=== PATIENT | male | born 1965 | race African-American/Black ===

== ENCOUNTER 2017-09-08 13:09 | Emergency (ER) | payer OTHER ==
[~2017-09-08] VITALS: Ht 175.3 cm; Wt 117.9 kg
[2017-09-08] MEDS ORDERED: ASPIR 8181 MG ORAL (13:17)
[2017-09-08] MEDS ORDERED: LOSARTAN POTASS25 MG ORAL (13:17)
[2017-09-08] MEDS ORDERED: HYDROcodone/Acetamin 10/325 tab ORAL ONE (13:45)
--- NOTE | 2017-09-08 14:03 | Emergency Room Report ---
History of Present Illness General Chief Complaint: Skin Rash/Abscess Source: Patient (Sheila Dean) Present Illness HPI 52-year-old male presents to the emergency department complaining of erythema, swelling, tenderness that is 8 out of 10 in severity to the right occipital area 2 days. Patient states his symptoms have been progressive. Patient reports he thought he had a pimple which she attempted to dress himself however he was unsuccessful and he notes that the area of swelling has gotten bigger. Patient reports difficulty sleeping on that side at night. Patient states he is up-to-date with tetanus vaccinations he denies IV or IM drug use. Denies DM or immune compromise, reports only HTN. He denies neck pain or stiffness. He reports onset after shaving his head, states he re-uses razors. He denies fevers or chills. Denies CP, Palpitations, LOC, AMS, dizziness, Changes in Vision, Sensation, paresthesias, or a sudden severe headache. (Sheila Dean) Allergies: Coded Allergies: No Known Allergies (Unverified , 09/08/17) Patient History Past Medical History: see triage record Past Surgical History: none Pertinent Family History: none Immunizations: UTD Reviewed Nursing Documentation: PMH: Agreed; PSxH: Agreed (Sheila Dean) Nursing Documentation-PMH Hx Cardiac Problems: Yes Hx Diabetes: Yes (Sheila Dean) Review of Systems All Other Systems: negative except mentioned in HPI (Sheila Dean) Physical Exam Vital Signs Date Time Temp Pulse Resp B/P (MAP) Pulse Ox O2 Delivery O2 Flow Rate FiO2 09/08/17 13:17 98.4 103 18 160/92 94 Room Air 98.4 Sp02 EP Interpretation: reviewed, normal General Appearance: no apparent distress, alert, GCS 15, non-toxic Head: normocephalic, other - swelling, erythema and tenderness with induration in a circular shape 2cm in diameter with some fluctuance palpable. On the right occipetal area. Eyes: right eye PERRL; bilateral eye normal inspection ENT: hearing grossly normal, normal voice Neck: full range of motion Respiratory: chest non-tender, lungs clear, normal breath sounds, speaking full sentences Cardiovascular #1: regular rate, rhythm Musculoskeletal: back normal, gait/station normal, normal range of motion, non- tender Neurologic: alert, oriented x3, responsive, motor strength/tone normal, sensory intact, speech normal, grossly normal Psychiatric: judgement/insight normal Skin: normal color, no rash, warm/dry, well hydrated Lymphatic: no adenopathy (Sheila Dean) Procedures Incision and Drainage Incision and Drainage : Consent: Verbal Site: right occipital area Blade Size: 11 I & D Procedure: betadine prep Wound Location: head - right occipital area Wound's Depth, Shape: superficial Wound Length (cm): 1 Wound Explored: contaminated - purulent discharge is expressed. Anesthesia: 1% Lidocaine Volume Anesthetic (ccs): 1 Splint Applied?: No Sling Applied?: No Patient Tolerated: Well Complications: None (Sheila Dean) Medical Decision Making PA Attestation Dr. Ch is my supervising Physician whom patient management has been discussed with. (Sheila Dean) Diagnostic Impression: Primary Impression: Abscess ER Course 52-year-old male presents to the emergency department complaining of erythema, swelling, tenderness that is 8 out of 10 in severity to the right occipital area 2 days. Patient states his symptoms have been progressive. Patient reports he thought he had a pimple which she attempted to dress himself however he was unsuccessful and he notes that the area of swelling has gotten bigger. Patient reports difficulty sleeping on that side at night. Patient states he is up-to-date with tetanus vaccinations he denies IV or IM drug use. Denies DM or immune compromise, reports only HTN. He denies neck pain or stiffness. He reports onset after shaving his head, states he re-uses razors. He denies fevers or chills. Denies CP, Palpitations, LOC, AMS, dizziness, Changes in Vision, Sensation, paresthesias, or a sudden severe headache. Ddx considered but are not limited to cellulitis, abscess, cystic acne, necrotizing fasciitis, insect bite. Vital signs: are WNL, pt. is afebrile H&PE are most consistent with abscess of the posterior scalp ORDERS: none required at this time, the diagnosis is clinical ED INTERVENTIONS: -[place] PO -I & D. DISCHARGE: At this time pt. is stable for d/c to home. Will provide printed patient care instructions, and any necessary prescriptions. Care plan and follow up instructions have been discussed with the patient prior to discharge. (Sheila Dean) Last Vital Signs Date Time Temp Pulse Resp B/P (MAP) Pulse Ox O2 Delivery O2 Flow Rate FiO2 09/08/17 13:55 98.4 09/08/17 13:17 103 18 160/92 94 Room Air (Sheila Dean) Last Vital Signs Date Time Temp Pulse Resp B/P (MAP) Pulse Ox O2 Delivery O2 Flow Rate FiO2 09/08/17 14:51 89.1 69 18 160/92 94 Room Air 209.1 (Ciro Ch M.D.) Disposition: HOME, SELF-CARE Condition: Stable Scripts Mupirocin* (MUPIROCIN*) 22 Gm Oint...g. 1 APPLIC TOPIC BID, #22 GM Prov: Sheila Dean 09/08/17 Acetaminophen* (TYLENOL EXTRA STRENGTH*) 500 Mg Tablet 500 MG ORAL Q6H PRN for For Pain, #20 TAB 0 Refills Prov: Sheila Dean 09/08/17 Trimethoprim/Sulfamethoxazole 160/800* (BACTRIM DS TABLET*) 1 Each Tablet 1 TAB ORAL TWICE A DAY for 7 Days, #14 TAB Prov: Sheila Dean 09/08/17 Patient Instructions: Abscess Additional Instructions: Take medications as directed. Follow up with a Primary Care Provider in 3-5 days, even if your symptoms have resolved. --Please review list of primary care clinics, if you do not already have a primary care provider Return sooner to ED if new symptoms occur, or current symptoms become worse. Do not drink alcohol, drive, or operate heavy machinery while taking [ ] as this may cause drowsiness. - Please note that this Emergency Department Report was dictated using [employer] supervisor technology software, occasionally this can lead to erroneous entry secondary to interpretation by the dictation equipment. Sheila Dean September 08, 2017 14:03 Ciro Ch M.D. September 08, 2017 21:58
[2017-09-08 14:22] VITALS: BP 160/92
[2017-09-08] MEDS ORDERED: BACTRIM DS TAB1 EAC1 ORAL (14:40)
[2017-09-08] MEDS ORDERED: TYLENOL EXTRA500 MG ORAL (14:40)
[2017-09-08] MEDS ORDERED: MUPIROCIN22 GM TOPIC (14:40)
[2017-09-08 14:51] VITALS: BP 160/92
[2017-09-11] MEDS ORDERED: CEPHALEXIN500 MG ORAL (21:20)
[2017-09-11] MEDS ORDERED: ACETAMINOPHEN-1 EAC1 ORAL (21:20)
== END 2017-09-08 16:16 | disposition home or self-care (01) ==
LOC: EMR 14:00
DX: L02.811 Cutaneous abscess of head [any part, except face] (principal); E11.9 Type 2 diabetes mellitus without complications
CPT/HCPCS: 10060; 99284

== ENCOUNTER 2019-06-07 20:28 | Emergency (ER) | payer OTHER ==
[~2019-06-07] VITALS: Ht 175.3 cm; Wt 113.4 kg
[~2019-06-07 20:28] MED LIST: ACETAMINOPHEN-1 EAC1 ORAL; ASPIR 8181 MG ORAL; BACTRIM DS TAB1 EAC1 ORAL; CEPHALEXIN500 MG ORAL; LOSARTAN POTASS25 MG ORAL; MUPIROCIN22 GM TOPIC; TYLENOL EXTRA500 MG ORAL
[2019-06-07 20:40] VITALS: BP 114/67
--- NOTE | 2019-06-07 20:40 | NUR ---
ED Nurse Note: Pt came into ED from home c/o left arm numbness and chest numbness x3 days.m Denies facial drooping. No slurring of speech. No hx of stroke. Able to move extremities with no limitations. Not in any distress. Pt placed on surveillance system monitor. Family member at bedside.
--- NOTE | 2019-06-07 20:59 | NUR ---
ED Nurse Note: ERMd at bedside.
--- NOTE | 2019-06-07 21:10 | Emergency Room Report ---
History of Present Illness General Chief Complaint: General Complaint Source: Patient Present Illness HPI Is a 54-year-old male with a history of diabetes and high blood pressure. He presents with chief complaint of numbness to the left side of his body. Onset for last 3 days. No other symptoms. No slurred speech. No motor focal deficit. Nothing made it better. Nothing made it worse. Denies any trauma. Allergies: Coded Allergies: No Known Allergies (Unverified , 09/08/17) Patient History Past Medical History: see triage record, old chart reviewed, DM, HTN Past Surgical History: other - Previous colostomy with reversal Pertinent Family History: none Social History: Denies: smoking Immunizations: other Reviewed Nursing Documentation: PMH: Agreed; PSxH: Agreed Nursing Documentation-PMH Hx Cardiac Problems: Yes Hx Hypertension: Yes Hx Diabetes: Yes Review of Systems Eye: Denies: eye pain, blurred vision ENT: Denies: ear pain, nose congestion, throat swelling Respiratory: Denies: cough, shortness of breath Cardiovascular: Denies: chest pain, palpitations Gastrointestinal: Denies: abdominal pain, diarrhea, nausea, vomiting Musculoskeletal: Denies: back pain, joint pain Skin: Denies: rash Neurological: Reports: paresthesia; Denies: headache, numbness Endocrine: Denies: increased thirst, increased urine Hematologic/Lymphatic: Denies: easy bruising All Other Systems: negative except mentioned in HPI Physical Exam Vital Signs Date Time Temp Pulse Resp B/P (MAP) Pulse Ox O2 Delivery O2 Flow Rate FiO2 06/07/19 20:31 98.2 107 18 114/67 (83) 97 Room Air Vitals unremarkable Sp02 EP Interpretation: reviewed, normal General Appearance: well appearing, no apparent distress, alert Head: normocephalic, atraumatic Eyes: bilateral eye PERRL, bilateral eye EOMI ENT: hearing grossly normal, normal pharynx Neck: full range of motion, supple, no meningismus Respiratory: chest non-tender, lungs clear, normal breath sounds Cardiovascular #1: regular rate, rhythm, no murmur Gastrointestinal: normal bowel sounds, non tender, no mass, no organomegaly, no bruit, non-distended Musculoskeletal: back normal, normal range of motion, gait/station normal Psychiatric: mood/affect normal Medical Decision Making ER Course Patient with numbness to his left side of the body. No focal deficit to indicate TIA or CVA. CT scans negative. Patient also expressed anxiety. He also wanted me to check if his previous colostomy reversal is okay. I told patient that if he is eating and drinking and having bowel movement without any difficulty then there is no complication or problem. If CT is negative will discharge home with follow-up with his primary care doctor. Ever since patient checked in, he is been very talkative and defensive. He seemed to be very angry. Even the triage nurse told me that his family told to come here. He said he did not want to be here. He was at a alliance party. When I came into the room, he started saying that if I do want to treat him then give him a new doctor. I would just ask him questions regarding his symptoms of numbness as part of the H&P. I told him I can order labs and CT head. when I left the room and the nurse coming to draw his lab, he got up and said he does not want a stay. He said he wants to leave. He is competent to make this decision. He will leave AMA. Last Vital Signs Date Time Temp Pulse Resp B/P (MAP) Pulse Ox O2 Delivery O2 Flow Rate FiO2 06/07/19 20:40 98.2 107 18 114/67 97 Room Air Status: unchanged Disposition: AGAINST MEDICAL ADVICE Condition: Stable Referrals: NON PHYSICIAN (PCP) Brayden Crenshaw MD Jun 07, 2019 21:10
--- NOTE | 2019-06-07 21:12 | NUR ---
ED Nurse Note: Pt wants to MD PORSHA notified. ERMD at bedside. Addendum: 06/08/19 at 0028 by ANTONELLA ED Nurse Note: Pt refused IV line and blood work. Rodrigo notified.
[2019-06-07 21:14] VITALS: BP 114/67
--- NOTE | 2019-06-07 21:14 | NUR ---
AMA: Pt decided to leave against medical advice. Pt started to be verbally aggressive and stated that he wants to go to a different hospital. Explained risk and benefits, verbally understood. ID band removed. Pt refused to sign AMA form. Pt left with all his belongings. Accompanied by a family member.
[2019-06-07 21:28] LABS: APPEARANCE,URINE CLEAR; BILIRUBIN, URINE NEGATIVE (NEGATIVE); COLOR,URINE PALE YELLOW; GLUCOSE, URINE (UA) NEGATIVE (NEGATIVE); KETONES,URINE NEGATIVE (NEGATIVE); LEUKOCYTE ESTERASE ,URINE NEGATIVE (NEGATIVE); NITRITE,URINE NEGATIVE (NEGATIVE); PH,URINE 5 (4.5-8.0); PROTEIN,URINE NEGATIVE (NEGATIVE); UROBILINOGEN,URINE NORMAL MG/DL (0.0-1.0)
== END 2019-06-07 21:14 | disposition left against medical advice (07) ==
LOC: EMR 21:02
DX: R20.0 Anesthesia of skin (principal); E11.9 Type 2 diabetes mellitus without complications; I10 Essential (primary) hypertension
CPT/HCPCS: 80307; 81001; Z7502; 99282